=== PATIENT | female | born 1960 | race Caucasian/White ===

== ENCOUNTER 2017-05-04 16:07 | Outpatient (CLI) | payer OTHER | END 2017-05-04 17:09 | disposition home or self-care (01) | LOC: SMA 16:07 | PROVIDERS: ATTEND Family Medicine | DX: Z12.31 Encounter for screening mammogram for malignant neoplasm of breast (principal) | CPT/HCPCS: G0202 ==

== ENCOUNTER 2018-06-01 15:05 | Outpatient (CLI) | payer OTHER | END 2018-06-01 20:42 | disposition home or self-care (01) | LOC: SMA 15:05 | PROVIDERS: ATTEND Family Medicine | DX: Z12.31 Encounter for screening mammogram for malignant neoplasm of breast (principal) | CPT/HCPCS: 77067 ==

== ENCOUNTER 2019-02-14 06:20 | Outpatient (CLI) | payer OTHER ==
[2019-02-14 08:57] LABS: BILIRUBIN,URINE NEGATIVE (NEGATIVE); BLOOD, URINE 1+ (NEGATIVE); CLARITY/URINE SL HAZY (CLEAR); COLOR,URINE YELLOW (YELLOW); GLUCOSE,URINE NEGATIVE (NEGATIVE); KETONES,URINE NEGATIVE (NEGATIVE); LEUKOCYTE ESTERASE ,URINE 1+ (NEGATIVE); NITRITE, URINE NEGATIVE (NEGATIVE); PROTEIN URINE NEGATIVE (NEGATIVE); UROBILINOGEN,URINE 0.2 (0.2-1.0)
[2019-02-14 09:09] LABS: BACTERIA,URINE FEW /HPF (None Seen); RBC,URINE 0-3 /HPF (0-3)
[2019-02-14 09:21] LABS: FREE T4 (FREE THYROXINE) 0.8 ng/dl (0.8-1.5); THYROID STIMULATING HORMONE 3.72 uIu/mL (0.36-3.74)
== END 2019-02-14 20:49 | disposition home or self-care (01) ==
LOC: SLB 06:20
PROVIDERS: ATTEND Family Medicine
DX: R31.29 Other microscopic hematuria (principal); R94.6 Abnormal results of thyroid function studies
CPT/HCPCS: 36415; 81000-TC; 84439; 84443-TC; 84481

== ENCOUNTER 2019-04-04 14:44 | Outpatient (CLI) | payer OTHER | END 2019-04-04 21:06 | disposition home or self-care (01) | LOC: SUS 14:44 | PROVIDERS: ATTEND Obstetrics & Gynecology | DX: N36.1 Urethral diverticulum (principal); N95.9 Unspecified menopausal and perimenopausal disorder | CPT/HCPCS: 76830-TC; 76857 ==

== ENCOUNTER 2019-06-15 15:18 | Outpatient (CLI) | payer OTHER | END 2019-06-15 21:19 | disposition home or self-care (01) | LOC: SMA 15:18 | PROVIDERS: ATTEND Family Medicine | DX: Z12.31 Encounter for screening mammogram for malignant neoplasm of breast (principal) | CPT/HCPCS: 77067 ==

== ENCOUNTER 2019-06-19 06:55 | Outpatient (CLI) | payer OTHER ==
[2019-06-19 08:01] LABS: CALCIUM 8.5 mg/dL (8.4-11.0); CREATININE 0.48 mg/dL (0.55-1.30); POTASSIUM 4.1 mmol/L (3.5-5.1)
== END 2019-06-19 21:20 | disposition home or self-care (01) ==
LOC: SLB 06:55
PROVIDERS: ATTEND Urology Female Pelvic Medicine and Reconstructive Surgery
DX: R31.0 Gross hematuria (principal); R35.0 Frequency of micturition; R39.15 Urgency of urination; N36.8 Other specified disorders of urethra
CPT/HCPCS: 36415; 80048

== ENCOUNTER 2019-06-22 15:22 | Outpatient (CLI) | payer OTHER ==
[2019-06-22] MEDS ORDERED: IOHEXOL 100 ML IV ONE (15:48)
== END 2019-06-22 20:22 | disposition home or self-care (01) ==
LOC: SCT 15:22
PROVIDERS: ATTEND Urology Female Pelvic Medicine and Reconstructive Surgery
DX: K42.9 Umbilical hernia without obstruction or gangrene (principal); N20.0 Calculus of kidney; R31.0 Gross hematuria; N36.8 Other specified disorders of urethra; R39.15 Urgency of urination; R35.0 Frequency of micturition; N95.2 Postmenopausal atrophic vaginitis; Z90.49 Acquired absence of other specified parts of digestive tract
CPT/HCPCS: 74178; Q9967

== ENCOUNTER 2019-07-05 09:12 | Outpatient (CLI) | payer OTHER ==
[2019-07-05] MEDS ORDERED: GADOPENTETATE DIMEGLUMINE 5 ML VIAL IV ONE (09:37)
== END 2019-07-05 20:35 | disposition home or self-care (01) ==
LOC: SMI 09:12
PROVIDERS: ATTEND Urology Female Pelvic Medicine and Reconstructive Surgery
DX: R31.0 Gross hematuria (principal); N36.8 Other specified disorders of urethra; N39.41 Urge incontinence; R39.15 Urgency of urination; R35.0 Frequency of micturition; N95.2 Postmenopausal atrophic vaginitis
CPT/HCPCS: 72195; A9579

== ENCOUNTER 2020-01-25 09:12 | Outpatient (CLI) | payer OTHER ==
[2020-01-25 09:45] LABS: BILIRUBIN,URINE NEGATIVE (NEGATIVE); BLOOD, URINE 1+ (NEGATIVE); CLARITY/URINE CLEAR (CLEAR); COLOR,URINE YELLOW (YELLOW); GLUCOSE,URINE NEGATIVE (NEGATIVE); KETONES,URINE NEGATIVE (NEGATIVE); LEUKOCYTE ESTERASE ,URINE TRACE (NEGATIVE); NITRITE, URINE NEGATIVE (NEGATIVE); PROTEIN URINE NEGATIVE (NEGATIVE); UROBILINOGEN,URINE 0.2 (0.2-1.0)
[2020-01-25 09:56] LABS: BACTERIA,URINE None Seen /HPF (None Seen); WBC,URINE 0-3 /HPF (0-3)
[2020-01-25 10:01] LABS: BASOPHILS % (AUTO) 0.6 % (0.0-2.0); EOSINOPHILS # (AUTO) 0.1 K/uL (0.0-0.4); EOSINOPHILS % (AUTO) 1.7 % (0.0-4.0); HEMATOCRIT 41.2 % (36-48); LYMPHOCYTES # (AUTO) 1.4 K/uL (1.0-5.5); LYMPHOCYTES % (AUTO) 33.3 % (20.5-51.5); MEAN CORPUSCULAR HEMOGLOBIN 31 pg (27-31); MEAN CORPUSCULAR HGB CONC 34 % (32-36); MEAN CORPUSCULAR VOLUME 90 fL (79.0-98.0); MONOCYTES # (AUTO) 0.2 K/uL (0.0-1.0); NEUTROPHILS # (AUTO) 2.6 K/uL (1.8-7.7); NEUTROPHILS % (AUTO) 59.4 % (40.0-70.0); PLATELET COUNT (AUTO) 212 K/uL (130-430); RED BLOOD CELL COUNT(AUTO) 4.58 MIL/uL (4.2-6.2); RED CELL DISTRIBUTION WIDTH 13.3 % (9.0-15.0); WHITE BLOOD COUNT (AUTO) 4.3 K/uL (4.8-10.8)
[2020-01-25 10:17] LABS: CALCIUM 9.2 mg/dL (8.4-11.0); CREATININE 0.59 mg/dL (0.55-1.30); POTASSIUM 3.5 mmol/L (3.5-5.1); THYROID STIMULATING HORMONE 2.96 uIu/mL (0.34-4.82); TOTAL BILIRUBIN 1.3 mg/dL (0.0-1.0)
== END 2020-01-25 20:09 | disposition home or self-care (01) ==
LOC: SLB 09:12
PROVIDERS: ATTEND Family Medicine
DX: Z00.00 Encounter for general adult medical examination without abnormal findings (principal); R94.4 Abnormal results of kidney function studies
CPT/HCPCS: 36415; 80053; 80061; 81000-TC; 82306; 84443-TC; 85025

== ENCOUNTER 2020-06-18 15:28 | Outpatient (CLI) | payer OTHER | END 2020-06-18 21:02 | disposition home or self-care (01) | LOC: SMA 15:28 | PROVIDERS: ATTEND Family Medicine | DX: Z12.31 Encounter for screening mammogram for malignant neoplasm of breast (principal) | CPT/HCPCS: 77067 ==

== ENCOUNTER 2021-03-18 06:48 | Outpatient (CLI) | payer OTHER ==
[2021-03-18 08:00] LABS: ALANINE AMINOTRANSFERASE 30 U/L (12-78); ASPARTATE AMINOTRANSFERASE 19 U/L (10-37)
[2021-03-18 08:44] LABS: CHOLESTEROL 273 mg/dL (<200); HDL CHOLESTEROL 60 mg/dL (>55); LDL CHOLESTEROL 184 mg/dL (<100); TRIGLYCERIDES 132 mg/dL (30-150)
== END 2021-03-18 19:53 | disposition home or self-care (01) ==
LOC: SLB 06:48
PROVIDERS: ATTEND Family Medicine
DX: E78.5 Hyperlipidemia, unspecified (principal)
CPT/HCPCS: 36415; 80061; 84450; 84460; 86886; 86900; 86901

== ENCOUNTER 2021-07-17 14:26 | Outpatient (CLI) | payer OTHER | END 2021-07-17 21:16 | disposition home or self-care (01) | LOC: SMA 14:26 | PROVIDERS: ATTEND Specialist | DX: Z12.31 Encounter for screening mammogram for malignant neoplasm of breast (principal) | CPT/HCPCS: 77067 ==

== ENCOUNTER 2021-11-07 07:03 | Outpatient (CLI) | payer OTHER ==
[2021-11-07 07:56] LABS: BILIRUBIN,URINE NEGATIVE (NEGATIVE); BLOOD, URINE 1+ (NEGATIVE); CLARITY/URINE CLEAR (CLEAR); COLOR,URINE YELLOW (YELLOW); GLUCOSE,URINE NEGATIVE (NEGATIVE); KETONES,URINE NEGATIVE (NEGATIVE); LEUKOCYTE ESTERASE ,URINE TRACE (NEGATIVE); NITRITE, URINE NEGATIVE (NEGATIVE); PROTEIN URINE NEGATIVE (NEGATIVE); UROBILINOGEN,URINE 0.2 (0.2-1.0)
[2021-11-07 08:39] LABS: BACTERIA,URINE FEW /HPF (None Seen); MUCUS,URINE 1+ /LPF (None Seen); RBC,URINE 0-3 /HPF (0-3); WBC,URINE 0-3 /HPF (0-3)
== END 2021-11-07 19:04 | disposition home or self-care (01) ==
LOC: SLB 07:03
PROVIDERS: ATTEND Family Medicine
DX: R31.29 Other microscopic hematuria (principal)
CPT/HCPCS: 81000

== ENCOUNTER 2021-12-26 09:16 | Outpatient (CLI) | payer OTHER | END 2021-12-26 19:00 | disposition home or self-care (01) | LOC: SUS 09:16 | PROVIDERS: ATTEND Family Medicine | DX: R10.13 Epigastric pain (principal); K83.8 Other specified diseases of biliary tract | CPT/HCPCS: 76700-TC ==

== ENCOUNTER 2022-03-26 06:52 | Outpatient (CLI) | payer OTHER ==
[2022-03-26 08:24] LABS: CALCIUM 8.7 mg/dL (8.4-11.0); CREATININE 0.53 mg/dL (0.55-1.30)
== END 2022-03-26 20:23 | disposition home or self-care (01) ==
LOC: SCT 06:52
PROVIDERS: ATTEND Urology
DX: N32.89 Other specified disorders of bladder (principal); R31.29 Other microscopic hematuria; I70.0 Atherosclerosis of aorta
CPT/HCPCS: 74178; 80048; 36415; 76376; Q9967

== ENCOUNTER 2022-06-08 07:47 | Day surgery (SDC) | payer OTHER ==
[~2022-06-08] VITALS: Ht 162.6 cm; Wt 74.8 kg
[2022-06-08] MEDS ORDERED: MEPERIDINE HCL/PF 25 MG/ML DISP.SYRIN ONE (09:12)
[2022-06-08] MEDS ORDERED: MIDAZOLAM HCL 5 MG/5 ML VIAL ONE (09:12)
[2022-06-08 12:17] VITALS: BP_SYST 127
== END 2022-06-08 11:15 | disposition home or self-care (01) ==
LOC: SDS 07:47 → SMU 07:48 → SDS 11:15
PROVIDERS: ATTEND Internal Medicine Gastroenterology
DX: R10.9 Unspecified abdominal pain (principal); K29.50 Unspecified chronic gastritis without bleeding; K29.80 Duodenitis without bleeding; K31.7 Polyp of stomach and duodenum; K44.9 Diaphragmatic hernia without obstruction or gangrene; Z79.899 Other long term (current) drug therapy; Z20.822 Contact with and (suspected) exposure to COVID-19
CPT/HCPCS: 43239; 87426; 87081; 36415; 88305; 88312; 88313; G0378; J2250; J2175

== ENCOUNTER → 2022-08-21 | Outpatient (CLI) | payer OTHER | END | disposition home or self-care (01) | LOC: SLB 14:07 | PROVIDERS: ATTEND Physician Assistant | DX: Z12.31 Encounter for screening mammogram for malignant neoplasm of breast (principal) | CPT/HCPCS: 77067 ==

== ENCOUNTER 2022-10-27 06:45 | Outpatient (CLI) | payer OTHER ==
[2022-10-27 07:38] LABS: BILIRUBIN,URINE NEGATIVE (NEGATIVE); CLARITY/URINE CLEAR (CLEAR); COLOR,URINE YELLOW (YELLOW); GLUCOSE,URINE NEGATIVE (NEGATIVE); KETONES,URINE NEGATIVE (NEGATIVE); LEUKOCYTE ESTERASE ,URINE 1+ (NEGATIVE); NITRITE, URINE NEGATIVE (NEGATIVE); PROTEIN URINE NEGATIVE (NEGATIVE); UROBILINOGEN,URINE 0.2 (0.2-1.0)
[2022-10-27 07:39] LABS: BASOPHILS % (AUTO) 0.8 % (0.0-2.0); EOSINOPHILS # (AUTO) 0.1 K/uL (0.0-0.4); EOSINOPHILS % (AUTO) 2.6 % (0.0-4.0); HEMATOCRIT 39.2 % (36-48); HEMOGLOBIN 13.1 g/dL (12.0-16.0); LYMPHOCYTES # (AUTO) 1.4 K/uL (1.0-5.5); LYMPHOCYTES % (AUTO) 29.2 % (20.5-51.5); MEAN CORPUSCULAR HEMOGLOBIN 30 pg (27-31); MEAN CORPUSCULAR HGB CONC 34 % (32-36); MEAN CORPUSCULAR VOLUME 90 fL (79.0-98.0); MONOCYTES # (AUTO) 0.2 K/uL (0.0-1.0); NEUTROPHILS % (AUTO) 62.4 % (40.0-70.0); PLATELET COUNT (AUTO) 210 K/uL (130-430); RED BLOOD CELL COUNT(AUTO) 4.36 MIL/uL (4.2-6.2); RED CELL DISTRIBUTION WIDTH 13.5 % (9.0-15.0); WHITE BLOOD COUNT (AUTO) 4.8 K/uL (4.8-10.8)
[2022-10-27 08:07] LABS: BLOOD, URINE 1+ (NEGATIVE)
[2022-10-27 08:08] LABS: ALBUMIN 3.8 g/dL (3.4-4.8); CALCIUM 8.5 mg/dL (8.4-11.0); CREATININE 0.56 mg/dL (0.55-1.30); THYROID STIMULATING HORMONE 4.74 uIu/mL (0.34-4.82); TOTAL BILIRUBIN 1.1 mg/dL (0.0-1.0)
[2022-10-27 08:09] LABS: BACTERIA,URINE RARE /HPF (None Seen); RBC,URINE 0-3 /HPF (0-3); WBC,URINE 0-3 /HPF (0-3)
[2022-10-28 16:06] LABS: FOLATE (FOLIC ACID) 18.7 ng/mL (>3.0)
== END 2022-10-27 19:10 | disposition home or self-care (01) ==
LOC: SLB 06:45
PROVIDERS: ATTEND Family Medicine
DX: Z00.00 Encounter for general adult medical examination without abnormal findings (principal); R94.6 Abnormal results of thyroid function studies; E55.9 Vitamin D deficiency, unspecified
CPT/HCPCS: 36415; 80053; 80061; 81000; 82306; 82607; 82746; 83037; 84443; 85025

== ENCOUNTER 2023-07-23 10:37 | Outpatient (CLI) | payer OTHER | END 2023-07-23 20:24 | disposition home or self-care (01) | LOC: SMA 10:37 | PROVIDERS: ATTEND Emergency Medicine | DX: Z12.31 Encounter for screening mammogram for malignant neoplasm of breast (principal) | CPT/HCPCS: 77067 ==

== ENCOUNTER 2023-11-10 07:08 | Outpatient (CLI) | payer OTHER ==
[2023-11-10 07:55] LABS: BASOPHILS % (AUTO) 0.7 % (0.0-2.0); EOSINOPHILS # (AUTO) 0.1 K/uL (0.0-0.4); EOSINOPHILS % (AUTO) 2.2 % (0.0-4.0); HEMATOCRIT 40.1 % (36-48); HEMOGLOBIN 13.3 g/dL (12.0-16.0); LYMPHOCYTES # (AUTO) 1.1 K/uL (1.0-5.5); LYMPHOCYTES % (AUTO) 27.3 % (20.5-51.5); MEAN CORPUSCULAR HEMOGLOBIN 30 pg (27-31); MEAN CORPUSCULAR HGB CONC 33 % (32-36); MEAN CORPUSCULAR VOLUME 90 fL (79.0-98.0); MONOCYTES # (AUTO) 0.2 K/uL (0.0-1.0); MONOCYTES % (AUTO) 5.3 % (1.7-9.3); NEUTROPHILS # (AUTO) 2.6 K/uL (1.8-7.7); NEUTROPHILS % (AUTO) 64.5 % (40.0-70.0); PLATELET COUNT (AUTO) 212 K/uL (130-430); RED BLOOD CELL COUNT(AUTO) 4.46 MIL/uL (4.2-6.2); RED CELL DISTRIBUTION WIDTH 13.4 % (9.0-15.0); WHITE BLOOD COUNT (AUTO) 4.1 K/uL (4.8-10.8)
[2023-11-10 08:01] LABS: BILIRUBIN,URINE NEGATIVE (NEGATIVE); BLOOD, URINE 1+ (NEGATIVE); CLARITY/URINE CLEAR (CLEAR); COLOR,URINE YELLOW (YELLOW); GLUCOSE,URINE NEGATIVE (NEGATIVE); KETONES,URINE NEGATIVE (NEGATIVE); LEUKOCYTE ESTERASE ,URINE 1+ (NEGATIVE); NITRITE, URINE NEGATIVE (NEGATIVE); PROTEIN URINE NEGATIVE (NEGATIVE); UROBILINOGEN,URINE 0.2 (0.2-1.0)
[2023-11-10 08:21] LABS: BACTERIA,URINE RARE /HPF (None Seen); MUCUS,URINE None Seen /LPF (None Seen); RBC,URINE 0-3 /HPF (0-3); WBC,URINE 0-3 /HPF (0-3)
[2023-11-10 08:26] LABS: ALBUMIN 3.7 g/dL (3.4-4.8); CALCIUM 8.8 mg/dL (8.4-11.0); CREATININE 0.5 mg/dL (0.55-1.30); POTASSIUM 4.1 mmol/L (3.5-5.1); THYROID STIMULATING HORMONE 4.85 uIu/mL (0.34-4.82); TOTAL BILIRUBIN 1.2 mg/dL (0.0-1.0); TOTAL PROTEIN, SERUM 7.3 g/dL (6.4-8.3)
== END 2023-11-10 21:05 | disposition home or self-care (01) ==
LOC: SLB 07:08
PROVIDERS: ATTEND Emergency Medicine
DX: E78.5 Hyperlipidemia, unspecified (principal); Z00.00 Encounter for general adult medical examination without abnormal findings; R94.6 Abnormal results of thyroid function studies
CPT/HCPCS: 36415; 80053; 80061; 81000; 81001; 81015; 83037; 84443; 85025